=== PATIENT | male | born 1965 | race Caucasian/White ===

== ENCOUNTER 2021-07-10 00:23 | Day surgery (SDC) | payer OTHER, SELFPAY ==
[2021-07-10 07:37] VITALS: BMI 40.3
[2021-07-10 07:38] VITALS: BP 135/90; PULSE 109; RESP 18; TEMP 36.6; O2SAT 95
[2021-07-10] MEDS: LACTATED RINGERS 1,000 ML 150 ML IV CONT (07:43)
--- NOTE | 2021-07-10 07:54 | WPDGICN ---
Assessment and Plan Assessment and plan (1) Colon cancer screening: Code(s): Z12.11 - Encounter for screening for malignant neoplasm of colon Status: Acute Assessment and Plan: Patient presents today for screening colonoscopy. He appears to be at average risk for colon polyps. Further recommendations will be given after endoscopy. GI Consult Note Consult date/time: 07/10/21 07:54 HPI: Mil Munoz is a 55 year old male Presents for screening colonoscopy. Patient reports that his current weight appetite and bowel movements are normal. He denies abdominal pain. He has had no bleeding. Family history is noncontributory. Review of Systems Review of Systems: All systems reviewed & are unremarkable except as noted in HPI and below PMFSH Past Medical History Medical History Erectile dysfunction Morbid obesity with BMI of 40.0-44.9, adult Family History Family History Grandparent Diabetes mellitus Father Heart disease Social History Social History (Updated 03/27/21 @ 10:31 by JESSICA Peace) Smoking status: Never smoker Alcohol intake: current Drinks per week: 12 Alcohol use details: BEER Substance use: never Substance use type: does not use Living arrangements: with family Spiritual care concerns: No Meds Home Medications and Allergies Home Medications Medication Instructions Recorded Confirmed Type lisinopril 20 mg tablet 20 mg PO DAILY #90 tablet 03/27/21 07/10/21 Rx sildenafil 100 mg tablet 100 mg PO DAILY PRN #30 tablet 03/27/21 07/10/21 Rx Allergies Allergy/AdvReac Type Severity Reaction Status Date / Time diphenhydramine AdvReac Mild Dizziness Verified 07/10/21 07:37 [From Benadryl] Vital Signs Vital Signs - 24 hr 07/10/21 07:38 Temperature 97.8 F Pulse Rate 109 H Respiratory Rate 18 Blood Pressure 135/90 Pulse Oximetry 95 Exam Narrative: Physical exam reveals patient to be alert. Vital signs stable. HEENT exam is unremarkable. Patient is anicteric. Lungs are clear to auscultation and percussion. Heart is without murmur or extra sounds. Abdominal exam bowel sounds are present soft nontender with no hepatosplenomegaly. Digital external rectal exam is normal.
--- NOTE | 2021-07-10 08:14 | P.PNAN_ITS ---
Anes - Eval Pre Procedure Procedure: Operation Date: 07/10/21 08:45 Proposed Procedures p Screening Colonoscopy - John Ng MD Date/Time: 07/10/21 08:14 Pre Op Diagnosis: neoplasm screening Patient Data Age: 55 Gender: M Height: 1.85 m Weight: 138.6 kg Last Vital Signs Temp 97.8 F 07/10/21 07:38 Pulse 109 H 07/10/21 07:38 Resp 18 07/10/21 07:38 BP 135/90 07/10/21 07:38 Pulse Ox 95 07/10/21 07:38 Allergies Allergy/AdvReac Type Severity Reaction Status Date / Time diphenhydramine AdvReac Mild Dizziness Verified 07/10/21 07:37 [From Benadryl] Home Medications Medication Instructions Recorded Confirmed Type lisinopril 20 mg tablet 20 mg PO DAILY #90 tablet 03/27/21 07/10/21 Rx sildenafil 100 mg tablet 100 mg PO DAILY PRN #30 tablet 03/27/21 07/10/21 Rx Patient hx anesthesia problems: none Family hx anesthesia problems: none Results Review: All pre-operative results and documents have been reviewed as part of the pre-operative evaluation. [facility] Past Medical History Medical History Erectile dysfunction Morbid obesity with BMI of 40.0-44.9, adult Family History Family History Grandparent Diabetes mellitus Father Heart disease Social History Social History Smoking status: Never smoker Alcohol intake: current Drinks per week: 12 Alcohol use details: BEER Substance use: never Substance use type: does not use Living arrangements: with family Spiritual care concerns: No Exam Day of Procedure 07/10/21 08:14
--- NOTE | 2021-07-10 08:29 | P.PNAN_ITS ---
Anes - Initial Pre Proc Eval Procedure: Operation Date: 07/10/21 08:45 Proposed Procedures p Screening Colonoscopy - John Ng MD Date/Time: 07/10/21 08:29 Surgeon: John Ng MD Pre Op Diagnosis: neoplasm screening Patient Data Age: 55 Gender: M Height: 1.85 m Weight: 138.6 kg Last Vital Signs Temp 97.8 F 07/10/21 07:38 Pulse 109 H 07/10/21 07:38 Resp 18 07/10/21 07:38 BP 135/90 07/10/21 07:38 Pulse Ox 95 07/10/21 07:38 Allergies Allergy/AdvReac Type Severity Reaction Status Date / Time diphenhydramine AdvReac Mild Dizziness Verified 07/10/21 07:37 [From Benadryl] Home Medications Medication Instructions Recorded Confirmed Type lisinopril 20 mg tablet 20 mg PO DAILY #90 tablet 03/27/21 07/10/21 Rx sildenafil 100 mg tablet 100 mg PO DAILY PRN #30 tablet 03/27/21 07/10/21 Rx Patient hx anesthesia problems: none Family hx anesthesia problems: none Results Review: All pre-operative results and documents have been reviewed as part of the pre-operative evaluation. [facility] Past Medical History Medical History Erectile dysfunction Morbid obesity with BMI of 40.0-44.9, adult Family History Family History Grandparent Diabetes mellitus Father Heart disease Social History Social History Smoking status: Never smoker Alcohol intake: current Drinks per week: 12 Alcohol use details: BEER Substance use: never Substance use type: does not use Living arrangements: with family Spiritual care concerns: No Anes - Eval Final PreProcedure Day of Procedure 07/10/21 08:29 Patient weight: morbidly obese Heart: regular rate and rhythm Lungs: clear to auscultation Airway: Mallampati scale class III Neurological: alert and oriented Last oral intake: 6 hours ASA classification: III Emergent: no Anesthetic plan: proceed Anesthesia type and monitoring: general Results Review: All pre-operative results and documents have been reviewed as part of the pre-operative evaluation. Informed Consent: The patient's anesthetic plan and its attendant risks and benefits were discussed with the patient/family/POA. Questions were solicited and answers provided to the satisfaction of the patient/family/POA.
[2021-07-10 08:47] VITALS: BP 125/75; PULSE 87; RESP 18; O2SAT 94
[2021-07-10 08:57] VITALS: BP 139/88; PULSE 85; RESP 18; O2SAT 95
[2021-07-10 09:07] VITALS: BP 133/88; PULSE 83; RESP 21; O2SAT 97
== END 2021-07-10 09:17 | disposition home or self-care (01) ==
PROVIDERS: PCP Family Medicine; Visit Provider Internal Medicine Gastroenterology
PROC: 0DJD8ZZ Inspection of Lower Intestinal Tract, Via Natural or Artificial Opening Endoscopic (ICD-10-PCS; CPT 45378; principal; 2021-07-10 08:45)
DX: Z12.11 Encounter for screening for malignant neoplasm of colon (principal); K57.30 Diverticulosis of large intestine without perforation or abscess without bleeding; E66.01 Morbid (severe) obesity due to excess calories; Z68.41 Body mass index [BMI] 40.0-44.9, adult
CPT/HCPCS: 45378; J2704; J7120

== ENCOUNTER 2022-12-13 08:17 | Outpatient (CLI) | payer OTHER, SELFPAY ==
--- NOTE | 2023-01-03 17:24 | WPDSLEEPSTUD ---
Sleep Study Date of Study: 12/13/22 Ordering Provider: Sohan Underwood MD Interpreting Physician: Roberta Joel MD Sleep Study Type: Split Polysomnogram Height: 1.85 m Weight: 140.614 kg Body Mass Index: 40.8 Neck Circumference (inches): 19 [place]: 6 Reason for Sleep Study Loud snoring; known obstructive sleep apnea, no prior studies to review. Sleep History Mil Munoz is a 57-year-old man with hypertension, erectile dysfunction and a history of obstructive sleep apnea, previously has used CPAP. He is having a split night sleep study for re-evaluation. He never awakens from sleep short of breath. He never at night with heartburn, belching or coughing.??He occasional snores, frequently snores loudly enough that others complain. He occasional has trouble sleeping when he has a cold. He never wakes up gasping for breath during the night. He occasionally has breathing problems at night. He occasionally sweats excessively at night. He never notices his heart pounding or beating irregularly during the night. He occasionally falls asleep during the day. He never falls asleep involuntarily, never falls asleep while driving. He never experiences loss of muscle tone with strong emotion. He never feels paralyzed on waking or falling asleep. He never experiences vivid dreams upon waking or falling asleep. He never feel afraid of going to sleep. He never has nightmares. He never recalls his dreams. He never has thoughts racing through his mind. He never feels sad or depressed. He rarely feels anxiety. He never notices parts of his body jerk. He never kicks during the night. He never feels crawling or aching feelings in his legs. He feels leg pain at night. He never grinds his teeth, never has morning jaw pain. He never feels bothered by pain during the day, never awakened by pain during the night. He rarely wakes up feeling stiff in the morning, rarely wakes feeling sore or achy in the morning. rarely he awakens with pain in his neck, spine, or joints. Normal bedtime is 9:00 p.m. to 9:30 p.m, usually falling asleep within 10-15 minutes. He typically gets about 7-8 hours of sleep per night. His wake up time is 5:00 a.m.. He wakes once at night to go to the bathroom, returns to sleep quickly. He may take naps during the afternoon or evening. A short nap lasting 10 or 15 minutes may be refreshing. He occasionally awakens feeling refreshed. Habits:??Tobacco: never Caffeine: none. Alcohol: 2 or 3 beers on days that he drinks. Recreational substances: none [facility] Past Medical History Medical History (Updated 01/03/23 @ 17:46 by Roberta Joel MD) Erectile dysfunction Hypertension Morbid obesity with BMI of 40.0-44.9, adult Obstructive sleep apnea Family History Family History Grandparent Diabetes mellitus Father Heart disease Social History Social History Smoking status: Never smoker Alcohol intake: current Drinks per week: 12 Alcohol use details: BEER Substance use: never Substance use type: does not use Lack of Transportation: No Lack of Food: Never True Current Housing: I Have Housing Concerned About Future Housing: No Difficulty Paying Gas/Electric Bills: No Currently Unemployed: No Education: High School Diploma/GED Difficulty w/ Childcare or Family Care: No Living arrangements: with family Spiritual care concerns: No Medications Home Medications Medication Instructions Recorded Confirmed Type CPAP #1 ea 11/28/22 11/28/22 Rx lisinopril 20 mg tablet 20 mg PO DAILY #90 tabs 11/28/22 11/28/22 Rx sildenafil 100 mg tablet (Viagra) 100 mg PO DAILY PRN sexual 11/28/22 11/28/22 Rx activity #30 tabs Sleep Procedure A split night polysomnogram using the [employer] multi-channel system recorded the standard physiologic parame
[2023-01-03 17:27] VITALS: BMI 40.8
== END 2022-12-14 07:29 | disposition home or self-care (01) ==
LOC: ANHCSM 08:18
PROVIDERS: PCP Family Medicine; Visit Provider Family Medicine
DX: G47.30 Sleep apnea, unspecified (principal); G47.33 Obstructive sleep apnea (adult) (pediatric)
CPT/HCPCS: 95811

== ENCOUNTER 2023-12-09 15:51 | Outpatient (CLI) | payer OTHER, SELFPAY ==
[2023-12-09 19:02] LABS: Alanine Aminotransferase 34 U/L (6-50); Albumin Level 4.3 g/dL (3.5-5.1); Alkaline Phosphatase 90 U/L (38-126); Anion Gap 9 mmol/L (4-12); Aspartate Amino Transferase 38 U/L (17-59); Bilirubin,Total 0.8 mg/dL (0.2-1.3); Blood Urea Nitrogen 23 mg/dL (9-20); Calcium 9.5 mg/dL (8.4-10.2); Carbon Dioxide 24 mmol/L (22-30); Chloride 106 mmol/L (98-107); Cholesterol 196 mg/dL (0-200); Estimated Glomerular Filt Rate > 60; Glucose 109 mg/dL (65-110); HDL Direct 41 mg/dL; Potassium 4.2 mmol/L (3.4-5.0); Sodium 139 mmol/L (137-145); Triglycerides 135 mg/dL (<150)
[2023-12-09 19:13] LABS: LDL Cholesterol Direct 128 mg/dL
[2023-12-09 19:30] LABS: Prostate Specific Antigen 1.1 ng/mL (< OR = 4.0)
[2023-12-09 19:36] LABS: Hemoglobin A1C 5.7 % (<5.7)
== END 2023-12-09 15:52 | disposition home or self-care (01) ==
LOC: ANHGOSHLAB 15:52
PROVIDERS: PCP Family Medicine; Visit Provider Family Medicine
DX: G47.33 Obstructive sleep apnea (adult) (pediatric) (principal); I10 Essential (primary) hypertension; Z12.5 Encounter for screening for malignant neoplasm of prostate
CPT/HCPCS: 36415; 80053; 80061; 83036; 84153; G0103